=== PATIENT | male | born 1990 | race Caucasian/White ===

== ENCOUNTER 2018-10-07 18:02 | Emergency (ER) | payer SELFPAY ==
[~2018-10-07] VITALS: Ht 177.8 cm; Wt 84.4 kg
[~2018-10-07 18:02] MED LIST: CLARITIN10 MG PO; DIFLUCAN100 MG PO; ELIMITE 5%60 GM T; MEDROL DOSEPAK4 MG PO; NKHM; NYSTATIN CREAM15 GM T; Nystatin Cream15 GM PO; OLIVE LEAF EXT500 MG PO; PREDNICOT20 MG PO; ZOVIRAX400 MG PO
[2018-10-07] MEDS ORDERED: LIDEX 0.05% CRE15 GM T (18:19)
== END 2018-10-07 18:38 | disposition home or self-care (01) ==
LOC: ED 18:02
DX: L23.9 Allergic contact dermatitis, unspecified cause (principal); Z79.899 Other long term (current) drug therapy

== ENCOUNTER → 2019-09-02 | Outpatient (CLI) | payer SELFPAY ==
[~2019-09-02] MED LIST changes: +LIDEX 0.05% CRE15 GM T
[2019-09-03 09:10] LABS: HEPATITIS B SURFACE AB Reactive (.)
[2019-09-03 15:10] LABS: MUMPS ANTIBODIES, IGG <9.0 AU/mL (Immune >10.9); VARICELLA-ZOSTER IGG 2040 index (Immune >165)
== END | disposition home or self-care (01) ==
LOC: LAB 08:50
PROVIDERS: Family Medicine
DX: Z00.00 Encounter for general adult medical examination without abnormal findings (principal)